=== PATIENT | female | born 1965 | race Caucasian/White ===

== ENCOUNTER 2017-02-04 08:50 | Day surgery (SDC) | payer OTHER ==
[~2017-02-04] VITALS: Ht 149.9 cm; Wt 72.6 kg
== END 2017-02-04 10:28 | disposition short-term general hospital (02) ==
LOC: SURGOP
PROC: 0DBH8ZX Excision of Cecum, Via Natural or Artificial Opening Endoscopic, Diagnostic (ICD-10-PCS; principal; 2017-02-04)
DX: Z12.11 Encounter for screening for malignant neoplasm of colon (principal); D12.0 Benign neoplasm of cecum; K64.4 Residual hemorrhoidal skin tags; G47.30 Sleep apnea, unspecified; E66.9 Obesity, unspecified; Z79.899 Other long term (current) drug therapy; Z90.49 Acquired absence of other specified parts of digestive tract; Z90.710 Acquired absence of both cervix and uterus
CPT/HCPCS: J2175; J2250